=== PATIENT | female | born 1995 ===

== ENCOUNTER 2016-11-23 06:33 | Day surgery (SDC) | payer OTHER ==
[~2016-11-23 06:33] MED LIST: Acetaminophen TAB* 325 MG PO PRN; Buffered Lidocaine 1% SYRIN* 3 ML/SYR SYRINGE INTRADERM ONE
[2016-11-23] MEDS ORDERED: Lidocaine 4% TOPICAL* 50 ML TOP.SOLN ONE (07:09)
[2016-11-23] MEDS ORDERED: BSS OPTH.SOL* BTL ONE (07:09)
[2016-11-23] MEDS ORDERED: Neomycin/Polymy/Dex OPHTH.OIN* 3.5 GM ONE (07:10)
[2016-11-23] MEDS ORDERED: Oxymetazoline 0.05% NASAL SPR* 15 ML BTL ONE (07:10)
[2016-11-23] MEDS ORDERED: fentaNYL* 50 MCG/ML 2 ML VIAL (100 MCG VIAL) ONE (07:50)
[2016-11-23] MEDS ORDERED: Midazolam* 1 MG/ML 2 ML VIAL (2 MG) ONE (07:50)
[2016-11-23] MEDS ORDERED: Dexamethasone IV* 4 MG/ML 1 ML (4 MG) ONE (07:51)
[2016-11-23] MEDS ORDERED: Propofol* 10 MG/ML 20 ML BTL IV PUSH ONE (07:51)
[2016-11-23] MEDS ORDERED: Ondansetron INJ* 2 MG/ML VIAL ONE (07:51)
[2016-11-23] MEDS ORDERED: Lidocaine 2% PF * 5 ML VIAL ONE (07:51)
[2016-11-23 09:27] VITALS: BP 105/70
--- NOTE | 2016-11-23 21:28 | OP ---
DATE OF OPERATION: 11/23/16 [facility] DATE OF : 89 SURGEON: Nazario Adair MD DENTAL PROSTHETIST: None. ANESTHESIOLOGIST: Marissa Sarmiento MD ANESTHESIA: General. PRE-OP DIAGNOSIS: Nasal lacrimal duct obstruction, left side. POST-OP DIAGNOSIS: Nasal lacrimal duct obstruction, left side. OPERATIVE PROCEDURE: Probe and irrigation, nasal lacrimal duct, left side with placement of Prince tube. COMPLICATIONS: None. BLOOD LOSS: Minimal. DESCRIPTION OF PROCEDURE: The patient brought to the operative room and given general anesthesia without any complications. Attention was directed to her left eye and nose area. An Afrin-soaked pledget was inserted into the left nostril. The inferior puncta was inspected and found to be patent. It was dilated with the punctal dilator. A #1 Neal's probe was inserted into the inferior puncta to the extent of the nasolacrimal duct and to nose, it was then removed. The superior puncta was inspected and found to be patent. It was dilated with a punctal dilator. A #1 Neal's probe was inserted through the superior puncta to the extent of the nasolacrimal duct system into the nose and removed. At this point, a Prince tube was placed such that the olive-tipped metal end was inserted through the inferior puncta into the nose through the nasolacrimal system. The Afrin pledget was removed. A Prince hook was used to retrieve the tip of the Prince tube and pulled out through the nose. In similar fashion, the other aspect of the Prince tube was placed through the superior puncta and the leading olive-tip metal end was grasped with a Prince hook and pulled through the nostril. The metal ends were cut and the silicone was tied securely into the nostril. The knot was trimmed appropriately. The inferior punctal stent was inspected and found to be neither too tight or too loose. There was minimal bleeding in the nose, which resolved spontaneously and was less than 1 cc. This stopped spontaneously. Maxitrol ointment was placed on the surface of the eye. The patient was awakened uneventfully and sent to recovery room in stable condition with postop instructions and followup appointment given. [id number] #: [id number] MTDD
== END 2016-11-23 09:28 | disposition home or self-care (01) ==
LOC: OREAST 06:33
PROVIDERS: ATTEND Ophthalmology
DX: H04.552 Acquired stenosis of left nasolacrimal duct (principal)
CPT/HCPCS: A9270-GY; J1100; J2250; J2405; J2704; J3010